=== PATIENT | female | born 1980 | race Caucasian/White ===

== ENCOUNTER 2016-11-30 13:39 | Inpatient (IN) | payer BC ==
[~2016-11-30 13:39] MED LIST: SUCCINYLCHOLINE CHLORIDE INJ 200 MG/10 ML VIAL ONE
[2016-11-30] MEDS ORDERED: ETOMIDATE INJ/PF 20 MG/10 ML SDV IV ONE ×2 (14:02→14:18)
--- NOTE | 2016-11-30 14:10 | ER Document Report ---
ED General - General Stated Complaint: POSSIBLE OVERDOSE Mode of Arrival: Medic Information source: Patient Notes: 28-year-old female presents as a drug overdose. Patient sent a picture of the empty pill bottles to her ex-boyfriend appears to have taken the medication one hour prior to arrival patient was moaning initially when EMS arrived but became unresponsive to painful stimuli TRAVEL OUTSIDE OF THE [place] IN LAST 30 DAYS: No - HPI Onset: Just prior to arrival Onset/Duration: Sudden Quality of pain: No pain Severity: Severe Pain Level: Denies Associated symptoms: Other Exacerbated by: Denies Relieved by: Denies Similar symptoms previously: No Recently seen / treated by doctor: No - Related Data Allergies/Adverse Reactions: cephalexin monohydrate [From Keflex] Allergy (Verified 07/29/15 19:26) codeine [Codeine] Allergy (Verified 07/29/15 19:26) Past Medical History - Social History Smoking Status: Unknown if Ever Smoked Cigarette use (# per day): No Chew tobacco use (# tins/day): No Smoking Education Provided: No Family History: Reviewed & Not Pertinent Past Surgical History: Reports: Hx Section - x 2, Hx Orthopedic Surgery - right knee arthroscopy, Hx Thyroid Surgery - cyst removal, Hx Tubal Ligation Review of Systems - Review of Systems Notes: PHYSICAL EXAMINATION: GENERAL: Well-appearing, well-nourished and painful stimuli obtunded HEAD: Atraumatic, normocephalic. EYES: Pupils equal round and reactive to light, extraocular movements intact, conjunctiva are normal. ENT: Nares patent, oropharynx clear without exudates. Moist mucous membranes. NECK: Normal range of motion, supple without lymphadenopathy LUNGS: Breath sounds clear to auscultation bilaterally and equal. No wheezes rales or rhonchi. Nasal cannula placed HEART: Regular rate and rhythm without murmurs ABDOMEN: Soft, nontender, nondistended abdomen. No guarding, no rebound. No masses appreciated. Female : deferred Musculoskeletal: Normal range of motion, no pitting or edema. No cyanosis. NEUROLOGICAL: No response to painful stimuli SKIN: Warm, Dry, normal turgor, no rashes or lesions noted. -: Yes ROS unobtainable due to patient's medical condition Physical Exam - Vital signs Vitals: Resp BP Pulse Ox 20 107/68 95 11/30/16 13:44 11/30/16 13:44 11/30/16 13:44 Course - Re-evaluation Re-evalutation: 11/30/16 14:02 Patient noted to have an empty bottle of doxepin 10 mg quantity 60 Patient noted to have bilateral of Klonopin 0.5 mg 60 tablets bottle filled on the with 51.5 tablets poison control paged 11/30/16 14:11 pt immediately intubated on arrival due to lack of pain stimuli if QRS widens to >140 poison control wants bicarb boluses 1-2 meq /kg iv push 4 hour post ingestion tylenol level - Vital Signs Vital signs: Temp Pulse Resp BP Pulse Ox 95.4 F L 22 H 123/97 H 99 11/30/16 14:21 11/30/16 14:21 11/30/16 14:21 11/30/16 14:21 - EKG Interpretation by Me EKG shows normal: Sinus rhythm, [place], Intervals, QRS Complexes Procedures - Intubation Orotracheal Time of Intubation: 14:00 Airway evaluation: Large tongue Mallampati Classification: Class 1 Medications: Etomidate, Succinylcholine Intubation method: Orotracheal Blade type: Opal Blade size: 4 ETT size: 7.0 ETT secured at: Teeth ETT secured at (cm): 22 Breath Sounds after Intubation: Equal End tidal CO2 confirmed: Yes Post Intubation Xray: Yes Intubation Complications: No complications Critical Care Note - Critical Care Note Total time excluding time spent on procedures (mins): 37 Comments: 37 minutes of critical care time spent in direct contact evaluating and reevaluating the patient, treating symptoms, reviewing labs and studies and speaking with family and consultants excluding any procedures Discharge - Discharge Clinical Impression: Tricyclic overdose Qualifiers: Encounter type: initial encounter Injury intent: intentional self-harm Qualified Code(s): T43.012A - Poisoning by tricyclic antidepressants, intentional self-harm, initial encounter Respiratory failure Qualifiers: Chronicity: acute Respiratory failure complication: hypoxia Qualified Code(s): J96.01 - Acute respiratory failure with hypoxia Condition: Serious Disposition: ADMITTED INPATIENT Admitting Provider: Hospitalist Unit Admitted: ICU
[2016-11-30] MEDS ORDERED: SUCCINYLCHOLINE CHLORIDE INJ 200 MG/10 ML VIAL IV ONE (14:18)
[2016-11-30] MEDS ORDERED: NORMAL SALINE 1000 ML 1,000 ML IV PRN (14:27)
[2016-11-30] MEDS: NORMAL SALINE 1000 ML 1,000 ML IV PRN ×2 (14:32→14:34)
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
[2016-11-30 15:05] LABS: ABSOLUTE EOSINOPHILS # (AUTO) 0.1 10^3/uL (0.0-0.6); ABSOLUTE LYMPHOCYTES (AUTO) 1.1 10^3/uL (0.5-4.7); ABSOLUTE MONOCYTES (AUTO) 0.2 10^3/uL (0.1-1.4); ABSOLUTE NEUT (AUTO) 2.9 10^3/uL (1.7-8.2); BASOPHILS % (AUTO) 0.4 % (0-2); HEMATOCRIT 35.1 % (36.0-47.0); HEMOGLOBIN 11.8 g/dL (12.0-15.5); HGB HCT DIFFERENCE 0.3; LYMPHOCYTES % (AUTO) 25.2 % (13-45); MEAN CORPUSCULAR HEMOGLOBIN 30.3 pg (27.0-33.4); MEAN CORPUSCULAR HGB CONC 33.6 g/dL (32.0-36.0); MEAN CORPUSCULAR VOLUME 90 fl (80-97); MONOCYTES % (AUTO) 4.7 % (3-13); RED CELL DISTRIBUTION WIDTH 13.5 % (11.5-14.0); SEGMENTED NEUTROPHILS % (AUTO) 67.7 % (42-78); WHITE BLOOD COUNT 4.2 10^3/uL (4.0-10.5)
[2016-11-30 15:08] LABS: APPEARANCE,URINE CLEAR; BILIRUBIN,URINE NEGATIVE (NEGATIVE); GLUCOSE, URINE NEGATIVE (NEGATIVE); KETONES,URINE NEGATIVE (NEGATIVE); LEUKOCYTE ESTERASE,URINE NEGATIVE (NEGATIVE); NITRITE,URINE NEGATIVE (NEGATIVE); PROTEIN,URINE NEGATIVE (NEGATIVE); URINE SPECIFIC GRAVITY 1.003; UROBILINOGEN,URINE NEGATIVE mg/dL (<2.0)
[2016-11-30 15:23] LABS: ALANINE AMINOTRANSFERASE 22 U/L (9-52); ALBUMIN 3.1 g/dL (3.5-5.0); ALCOHOL < 10 mg/dL (NONE DETECTED); ALKALINE PHOSPHATASE 46 U/L (38-126); ANION GAP 6 (5-19); ASPARTATE AMINO TRANSFERASE 15 U/L (14-36); BILIRUBIN,TOTAL 0.7 mg/dL (0.2-1.3); BLOOD UREA NITROGEN 9 mg/dL (7-20); CALCIUM 7.7 mg/dL (8.4-10.2); CARBON DIOXIDE 20 mmol/L (22-30); CHLORIDE 115 mmol/L (98-107); CREATININE RESULT 0.73 mg/dL (0.52-1.25); GLUCOSE 95 mg/dL (75-110); POTASSIUM 3.9 mmol/L (3.6-5.0); SODIUM 141.3 mmol/L (137-145); TOTAL PROTEIN 5.2 g/dL (6.3-8.2)
[2016-11-30 15:27] LABS: URINE BARBITURATES SCREEN NEGATIVE; URINE METHADONE SCREEN NEGATIVE; URINE OPIATES LOW NEGATIVE; URINE PHENCYCLIDINE SCREEN NEGATIVE
--- NOTE | 2016-11-30 15:30 | EKG REPORT ---
SEVERITY:- ABNORMAL ECG - SINUS RHYTHM FIRST DEGREE AV BLOCK OLD ANTEROSEPTAL CT. : Confirmed by: Stef Issa MD 30-Nov-2016 15:29:38
--- NOTE | 2016-11-30 16:16 | PDOC H&P ---
History of Present Illness Admission Date/PCP: 11/30/16 14:56 Patient complains of: intentional drug overdose History of Present Illness: JANAE DUBOIS is a 36 year old female who presents to the [facility] ED as a drug overdose. The patient's and picture of the empty pill bottles to her ex-boyfriend. She apparently took the medications about one hour prior to arrival in the ED. The patient was initially moaning but then became unresponsive. She was intubated and is now on a mechanical ventilator. The patient is noted to have an empty bottle of doxepin 10 mg quantity 60 which was filled on 11/24/2016. She also had a bottle of Klonopin 0.5 mg 60 tablets also filled on the but still containing 51.5 tablets. The electrocardiogram shows that her QRS is not widened. If the QRS widens greater than 140, carbonate therapy is to be instituted. The patient will be admitted to the ICU for support and monitoring. Past Medical History Past Medical History: Past medical history is unknown and unobtainable from the patient who is encephalopathic on a ventilator. Past Surgical History Past Surgical History: right knee arthroscopy, thyroid surgery, cyst removal, tubal ligation, C- section x2 Past Surgical History: Reports: Other Social History Smoking Status: Unknown if Ever Smoked Drugs: Other - Unobtainable from the patient was obtunded and on a ventilator. Family History Family History: Other - Unobtainable from the patient who is obtunded and on a ventilator. Parental Family History Reviewed: No Children Family History Reviewed: No Sibling(s) Family History Reviewed.: No Medication/Allergy Home Medications: No Home Medications 07/29/15 Allergies/Adverse Reactions: cephalexin monohydrate [From Keflex] Allergy (Verified 07/29/15 19:26) codeine [Codeine] Allergy (Verified 07/29/15 19:26) Review of Systems ROS unobtainable: Due to mental status - Unobtainable from the patient was obtunded and on a ventilator., Other - Unobtainable from the patient was obtunded and on a ventilator. Physical Exam Vital Signs: Temp Pulse Resp BP Pulse Ox 94.3 F L 12 120/83 99 11/30/16 15:51 11/30/16 15:51 11/30/16 15:51 11/30/16 15:51 General appearance: PRESENT: well-developed, well-nourished, other - Obtunded. Oral endotracheally intubated and on a ventilator. Head exam: PRESENT: atraumatic, normocephalic Eye exam: PRESENT: conjunctiva pink. ABSENT: scleral icterus Ear exam: PRESENT: normal external ear exam Mouth exam: PRESENT: moist, tongue midline Neck exam: ABSENT: carotid bruit, JVD, lymphadenopathy, thyromegaly Respiratory exam: PRESENT: clear to auscultation gaudencio. ABSENT: rales, rhonchi, wheezes Cardiovascular exam: PRESENT: RRR. ABSENT: diastolic murmur, rubs, systolic murmur Pulses: PRESENT: normal dorsalis pedis pul Vascular exam: PRESENT: normal capillary refill GI/Abdominal exam: PRESENT: normal bowel sounds, soft. ABSENT: distended, guarding, mass, organolmegaly, rebound, tenderness Rectal exam: PRESENT: deferred Extremities exam: ABSENT: calf tenderness, clubbing, pedal edema Neurological exam: PRESENT: altered, motor sensory deficit. ABSENT: alert, awake Psychiatric exam: PRESENT: suicidal ideation Skin exam: PRESENT: dry, intact, warm. ABSENT: cyanosis, rash Results Impressions: Chest X-Ray 11/30/16 14:13 IMPRESSION: Atelectasis or early pneumonia status post intubation. Good position of support apparatus. Assessment & Plan - Diagnosis (1) Tricyclic overdose Qualifiers: Encounter type: initial encounter Injury intent: intentional self-harm Qualified Code(s): T43.012A - Poisoning by tricyclic antidepressants, intentional self-harm, initial encounter Plan: The patient is intubated and on a ventilator. Due to being obtunded. Due to tricyclic antidepressant overdose. The QRS complex is not widened. This will be monitored. If the QRS widens greater than 140 ms Will treat with bicarbonate. (2) Respiratory failure Qualifiers: Chronicity: acute Respiratory failure complication: hypoxia Qualified Code(s): J96.01 - Acute respiratory failure with hypoxia Plan: Ventilator support while she remains obtunded. We'll consult pulmonary medicine for ventilator management. (3) Major depression Plan: Psychiatry consultation is in place - Time Critical Time spent with patient: 35 or more minutes
[2016-11-30] MEDS ORDERED: ENOXAPARIN SODIUM INJ 40 MG/0.4 ML DISP.SYRIN SUBCUT ONE (17:00)
[2016-11-30] MEDS: FAMOTIDINE INJ/PF 20 MG/2 ML SDV IV SCH (18:00)
[2016-11-30] MEDS: DEXTROSE 5%-1/2 NORMAL SALINE 1,000 ML IV PRN ×2 (18:00→23:37)
[2016-11-30] MEDS ORDERED: MIDAZOLAM 2 MG/2 ML INJ ONE (19:43)
[2016-11-30] MEDS ORDERED: MIDAZOLAM HCL 100 ML IV ONE (19:48)
[2016-11-30] MEDS: MIDAZOLAM HCL 100 ML IV PRN (20:22)
[2016-12-01] MEDS ORDERED: MIDAZOLAM 2 MG/2 ML INJ ONE ×3 (01:28→01:31)
[2016-12-01] MEDS: MIDAZOLAM HCL 100 ML IV PRN ×4 (03:39→21:57)
[2016-12-01] MEDS: FAMOTIDINE INJ/PF 20 MG/2 ML SDV IV SCH ×2 (05:46→17:25)
[2016-12-01] MEDS: ENOXAPARIN SODIUM INJ 40 MG/0.4 ML DISP.SYRIN SUBCUT SCH (08:06)
[2016-12-01] MEDS: DEXTROSE 5%-1/2 NORMAL SALINE 1,000 ML IV PRN ×3 (08:06→23:45)
[2016-12-01] MEDS ORDERED: DEXTROSE 40% GEL 15 GM TUBE PO PRN ×2 (08:32)
[2016-12-01] MEDS ORDERED: INSULIN LISPRO 100 UNIT/ML 3 ML VIAL SUBCUT PRN (08:32)
[2016-12-01] MEDS ORDERED: GLUCAGON,HUMAN RECOMB 1 MG INJ IM PRN (08:32)
[2016-12-01] MEDS ORDERED: DEXTROSE 50%-WATER 25 GM/50 ML DISP.SYRIN IV PRN ×2 (08:32)
[2016-12-01] MEDS ORDERED: PROPOFOL 100 ML IV PRN (08:34)
[2016-12-01] MEDS ORDERED: ALBUTEROL SULFATE 0.083% NEB 2.5 MG/3 ML AMPUL NEB PRN (08:35)
[2016-12-01] MEDS ORDERED: PHARMACY COMMUNICATION ORDER MC NR (08:45)
[2016-12-01 09:32] LABS: ARTERIAL BLOOD BASE EXCESS -3.3 mmol/L; ARTERIAL BLOOD O2 SATURATION 98.9 % (94-98)
[2016-12-01] MEDS ORDERED: SODIUM BICARBONATE 8.4% INJ 50 MEQ/50 ML DISP.SYRIN IV ONE ×2 (09:33→11:12)
[2016-12-01 09:48] LABS: ABSOLUTE EOSINOPHILS # (AUTO) 0.1 10^3/uL (0.0-0.6); ABSOLUTE LYMPHOCYTES (AUTO) 0.8 10^3/uL (0.5-4.7); ABSOLUTE MONOCYTES (AUTO) 0.4 10^3/uL (0.1-1.4); ABSOLUTE NEUT (AUTO) 7.9 10^3/uL (1.7-8.2); BASOPHILS % (AUTO) 0.2 % (0-2); EOSINOPHILS % (AUTO) 0.7 % (0-6); HEMOGLOBIN 12.1 g/dL (12.0-15.5); HGB HCT DIFFERENCE 0.3; LYMPHOCYTES % (AUTO) 8.6 % (13-45); MEAN CORPUSCULAR HGB CONC 33.7 g/dL (32.0-36.0); MEAN CORPUSCULAR VOLUME 89 fl (80-97); MONOCYTES % (AUTO) 4.3 % (3-13); RED BLOOD COUNT 4.04 10^6/uL (3.72-5.28); RED CELL DISTRIBUTION WIDTH 13.4 % (11.5-14.0); SEGMENTED NEUTROPHILS % (AUTO) 86.2 % (42-78)
[2016-12-01 09:58] LABS: WHITE BLOOD COUNT 9.2 10^3/uL (4.0-10.5)
[2016-12-01] MEDS ORDERED: MORPHINE SULFATE 10 MG/ML INJ IV PRN (09:59)
[2016-12-01 10:09] LABS: ALANINE AMINOTRANSFERASE 21 U/L (9-52); ALBUMIN 3.2 g/dL (3.5-5.0); ALKALINE PHOSPHATASE 47 U/L (38-126); ANION GAP 9 (5-19); ASPARTATE AMINO TRANSFERASE 15 U/L (14-36); BLOOD UREA NITROGEN 5 mg/dL (7-20); CALCIUM 8.3 mg/dL (8.4-10.2); CARBON DIOXIDE 19 mmol/L (22-30); CHLORIDE 112 mmol/L (98-107); CREATINE KINASE 56 U/L (30-135); CREATININE RESULT 0.68 mg/dL (0.52-1.25); GLUCOSE 122 mg/dL (75-110); MAGNESIUM 1.9 mg/dL (1.6-2.3); PHOSPHORUS 2.6 mg/dL (2.5-4.5); POTASSIUM 3.5 mmol/L (3.6-5.0); SODIUM 140.2 mmol/L (137-145); TOTAL PROTEIN 5.4 g/dL (6.3-8.2)
[2016-12-01 10:11] LABS: LITHIUM < 0.2 mEq/L (0.6-1.2)
--- NOTE | 2016-12-01 10:34 | PDOC PROGRESS REPORT ---
Subjective Progress Note for:: 12/01/16 Subjective:: Patient remains intubated and sedated. Unable to obtain review of systems. Physical Exam Vital Signs: Temp Pulse Resp BP Pulse Ox 98.4 F 78 17 113/73 100 12/01/16 08:00 12/01/16 08:00 12/01/16 08:00 12/01/16 08:00 12/01/16 08:20 Intake & Output 11/30/16 12/01/16 12/02/16 06:59 06:59 06:59 Output Total 1999 Balance -1999 Exam: General: Intubated and sedated, ET tube in place HEENT: AT/NC, PERRL, oropharynx is moist, pink, no scleral icterus, no conjunctival injection Neck: No JVD, trachea midline Chest: Clear to auscultation bilaterally, no wheezes rhonchi or rales CV: Regular rate and rhythm, normal S1 and S2, no murmur, rub, or gallop Abdomen: Soft, nontender to palpation, nondistended, active bowel sounds; no rebound, rigidity, or guarding Extremities: No cyanosis, clubbing or edema Results Laboratory Results: 12/01/16 09:40 12/01/16 09:40 12/01/16 12/01/16 12/01/16 09:20 09:40 09:40 WBC 9.2 D RBC 4.04 Hgb 12.1 Hct 36.0 MCV 89 MCH 30.0 MCHC 33.7 RDW 13.4 Plt Count 154 Seg Neutrophils % 86.2 H Lymphocytes % 8.6 L Monocytes % 4.3 Eosinophils % 0.7 Basophils % 0.2 Absolute Neutrophils 7.9 Absolute Lymphocytes 0.8 Absolute Monocytes 0.4 Absolute Eosinophils 0.1 Absolute Basophils 0.0 Carbonic Acid 1.06 HCO3/H2CO3 Ratio 19:1 ABG pH 7.39 ABG pCO2 35.2 ABG pO2 147.7 H ABG HCO3 21.0 ABG O2 Saturation 98.9 H ABG Base Excess -3.3 FiO2 35% Sodium 140.2 Potassium 3.5 L Chloride 112 H Carbon Dioxide 19 L Anion Gap 9 BUN 5 L Creatinine 0.68 Est GFR ( Amer) > 60 Est GFR (Non-Af Amer) > 60 Glucose 122 H Calcium 8.3 L Phosphorus 2.6 Magnesium 1.9 Total Bilirubin 1.0 AST 15 ALT 21 Alkaline Phosphatase 47 Total Protein 5.4 L Albumin 3.2 L 12/01/16 09:40 Creatine Kinase 56 Impressions: Chest X-Ray 12/01/16 00:00 IMPRESSION: Endotracheal and nasogastric tubes in good positioning. Bandlike atelectasis left lung base. Assessment & Plan - Diagnosis (1) Respiratory failure Qualifiers: Chronicity: acute Respiratory failure complication: hypoxia Qualified Code(s): J96.01 - Acute respiratory failure with hypoxia Is this a current diagnosis for this admission?: YesPlan: Patient appears to have been intubated for decreased level of consciousness and some slight hypoxia. Patient currently doing well from a ventilator standpoint. Have consulted Dr. vinson of pulmonary medicine. (2) Tricyclic overdose Qualifiers: Encounter type: initial encounter Injury intent: intentional self-harm Qualified Code(s): T43.012A - Poisoning by tricyclic antidepressants, intentional self-harm, initial encounter Is this a current diagnosis for this admission?: YesPlan: Patient with first-degree AV block. Will give patient 100 mEq of sodium bicarbonate and repeat her EKG. Patient has a mildly prolonged QRS 0.9. Concern for cardiac toxicity in light of tricyclic overdose. Continue to monitor. EKGs every 4 hours. BMPs every 4 hours. Continue Versed for sedation and use propofol if needed. Monitor for seizure activity. IVC for patient safety. Plan for inpatient psychiatry. (3) Obesity (BMI 30.0-34.9) Is this a current diagnosis for this admission?: Yes - Time Critical Time spent with patient: 35 or more minutes Medications reviewed and adjusted accordingly: Yes Anticipated discharge: Other
[2016-12-01] MEDS ORDERED: NORMAL SALINE 1000 ML 1,000 ML IV ONE (11:10)
[2016-12-01] MEDS: DEXTROSE 5%-WATER 1000 ML 1,000 ML with SODIUM BICARBONATE 150 ML IV PRN ×6 (11:54→21:57)
[2016-12-01 11:59] LABS: URINE BARBITURATES SCREEN NEGATIVE; URINE METHADONE SCREEN NEGATIVE; URINE OPIATES LOW NEGATIVE; URINE PHENCYCLIDINE SCREEN NEGATIVE
[2016-12-01 12:59] LABS: ANION GAP 8 (5-19); BLOOD UREA NITROGEN 5 mg/dL (7-20); CALCIUM 7.8 mg/dL (8.4-10.2); CARBON DIOXIDE 25 mmol/L (22-30); CHLORIDE 112 mmol/L (98-107); CREATININE RESULT 0.65 mg/dL (0.52-1.25); GLUCOSE 129 mg/dL (75-110); POTASSIUM 3.1 mmol/L (3.6-5.0)
[2016-12-01] MEDS ORDERED: POTASSIUM CHLORIDE 20 MEQ/15 ML UDCUP NG ONE ×2 (14:00→18:00)
[2016-12-01] MEDS: MAGNESIUM SULFATE/D5W 1 GM/100 ML RTUPB IV SCH ×2 (14:04→15:35)
[2016-12-01] MEDS: POTASSI CL 20 MEQ/50 ML RIDER 20 MEQ/50 ML RTUPB IV SCH ×4 (14:05→20:57)
--- NOTE | 2016-12-01 14:08 | PDOC CONSULTATION ---
Consultation Consult Date: 12/01/16 Attending physician:: NADINE GOMEZ Consult reason:: Altered mental status History of Present Illness Admission Date/PCP: 11/30/16 15:38 History of Present Illness: All information from chart as patient is currently intubated and sedated no family members at bedside JANAE DUBOIS is a 36 year old female who presents to the [facility] ED as a drug overdose. The patient's and picture of the empty pill bottles to her ex-boyfriend. She apparently took the medications about one hour prior to arrival in the ED. The patient was initially moaning but then became unresponsive. She was intubated and is now on a mechanical ventilator.The patient is noted to have an empty bottle of doxepin 10 mg quantity 60 which was filled on 11/24/2016. She also had a bottle of Klonopin 0.5 mg 60 tablets also filled on the but still containing 51.5 tablets. The electrocardiogram shows that her QRS is not widened. If the QRS widens greater than 140, carbonate therapy is to be instituted. Past Surgical History Past Surgical History: Reports: Section - x 2, Orthopedic Surgery - right knee arthroscopy, Tubal Ligation, Other Social History Information Source: [facility] Records Smoking Status: Unknown if Ever Smoked Drugs: Other - Unobtainable from the patient was obtunded and on a ventilator. Family History Family History: Other - Unobtainable from the patient who is obtunded and on a ventilator. Parental Family History Reviewed: No Children Family History Reviewed: No Sibling(s) Family History Reviewed.: No Medication/Allergy Home Medications: Unobtainable [Unobtainable] 11/30/16 Allergies/Adverse Reactions: cephalexin monohydrate [From Keflex] Allergy (Verified 07/29/15 19:26) codeine [Codeine] Allergy (Verified 07/29/15 19:26) Review of Systems ROS unobtainable: Due to endotracheal tube Physical Exam Vital Signs: Temp Pulse Resp BP Pulse Ox 98.4 F 78 17 113/73 100 12/01/16 08:00 12/01/16 08:00 12/01/16 08:00 12/01/16 08:00 12/01/16 08:20 Intake & Output 11/30/16 12/01/16 12/02/16 06:59 06:59 06:59 Output Total 2000 Balance -2000 General appearance: PRESENT: no acute distress, disheveled, well-developed, well -nourished Head exam: PRESENT: atraumatic, normocephalic Eye exam: PRESENT: conjunctiva pale Mouth exam: PRESENT: moist, neck supple, tongue midline, other - Endotracheal tube in place Neck exam: ABSENT: carotid bruit, JVD, lymphadenopathy, thyromegaly Respiratory exam: PRESENT: decreased breath sounds, rhonchi, symmetrical, unlabored Cardiovascular exam: PRESENT: RRR, +S1, +S2 Pulses: PRESENT: normal radial pulses GI/Abdominal exam: PRESENT: normal bowel sounds, soft. ABSENT: distended, guarding, mass, organolmegaly, rebound, tenderness Rectal exam: PRESENT: deferred Musculoskeletal exam: PRESENT: normal inspection Skin exam: PRESENT: dry, intact, warm Results Impressions: Chest X-Ray 11/30/16 14:13 IMPRESSION: Atelectasis or early pneumonia status post intubation. Good position of support apparatus. Assessment & Plan - Diagnosis (1) Major depression Is this a current diagnosis for this admission?: Yes (2) Respiratory failure Qualifiers: Chronicity: acute Respiratory failure complication: hypoxia Qualified Code(s): J96.01 - Acute respiratory failure with hypoxia Is this a current diagnosis for this admission?: YesPlan: Obtunded unable to protect airway ABGs acceptable at this time (3) Tricyclic overdose Qualifiers: Encounter type: initial encounter Injury intent: intentional self-harm Qualified Code(s): T43.012A - Poisoning by tricyclic antidepressants, intentional self-harm, initial encounter Is this a current diagnosis for this admission?: YesPlan: No EKG abnormalities noted remains obtunded - Time Critical Time spent with patient: 35 or more minutes - 50 minutes
[2016-12-01] MEDS: MORPHINE SULFATE 10 MG/ML INJ SUBCUT SCH ×2 (14:51→17:25)
[2016-12-01] MEDS: CLINDAMYCIN 600 MG/D5W RTU 50 ML IV SCH ×2 (14:58→21:00)
[2016-12-01 15:23] LABS: ARTERIAL BLOOD BASE EXCESS -0.3 mmol/L; ARTERIAL BLOOD O2 SATURATION 98.9 % (94-98)
[2016-12-01 16:20] LABS: ANION GAP 7 (5-19); BLOOD UREA NITROGEN 4 mg/dL (7-20); CALCIUM 7.8 mg/dL (8.4-10.2); CARBON DIOXIDE 25 mmol/L (22-30); CHLORIDE 110 mmol/L (98-107); CREATININE RESULT 0.61 mg/dL (0.52-1.25); GLUCOSE 151 mg/dL (75-110); POTASSIUM 3.5 mmol/L (3.6-5.0); SODIUM 141.7 mmol/L (137-145)
[2016-12-01 16:48] LABS: ARTERIAL BLOOD BASE EXCESS 0.2 mmol/L; ARTERIAL BLOOD O2 SATURATION 98.9 % (94-98)
--- NOTE | 2016-12-01 18:23 | EKG REPORT ---
SEVERITY:- ABNORMAL ECG - SINUS RHYTHM FIRST DEGREE AV BLOCK BORDERLINE T ABNORMALITIES, ANT-LAT LEADS OLD ANTEROSEPTAL [place] : Confirmed by: Stef Issa MD 01-Dec-2016 18:22:21
--- NOTE | 2016-12-01 18:24 | EKG REPORT ---
SEVERITY:- ABNORMAL ECG - SINUS RHYTHM FIRST DEGREE AV BLOCK BORDERLINE T ABNORMALITIES, ANT-LAT LEADS OLD ANTEROSEPTAL [place] : Confirmed by: Stef Issa MD 01-Dec-2016 18:23:20
--- NOTE | 2016-12-01 18:24 | EKG REPORT ---
SEVERITY:- ABNORMAL ECG - SINUS RHYTHM FIRST DEGREE AV BLOCK BORDERLINE T ABNORMALITIES, ANT-LAT LEADS OLD ANTEROSEPTAL SD : Confirmed by: Stef Issa MD 01-Dec-2016 18:23:00
[2016-12-01 18:30] LABS: ARTERIAL BLOOD BASE EXCESS -1.5 mmol/L; ARTERIAL BLOOD O2 SATURATION 98.9 % (94-98)
[2016-12-01 19:51] LABS: ARTERIAL BLOOD BASE EXCESS -0.4 mmol/L; ARTERIAL BLOOD O2 SATURATION 98.7 % (94-98)
[2016-12-01 20:08] LABS: ANION GAP 6 (5-19); BLOOD UREA NITROGEN 3 mg/dL (7-20); CALCIUM 7.9 mg/dL (8.4-10.2); CARBON DIOXIDE 24 mmol/L (22-30); CHLORIDE 112 mmol/L (98-107); CREATININE RESULT 0.61 mg/dL (0.52-1.25); GLUCOSE 132 mg/dL (75-110); SODIUM 142.4 mmol/L (137-145)
[2016-12-01 20:58] LABS: ARTERIAL BLOOD O2 SATURATION 93.8 % (94-98)
[2016-12-01 22:42] LABS: ARTERIAL BLOOD BASE EXCESS -0.9 mmol/L; ARTERIAL BLOOD O2 SATURATION 95.9 % (94-98)
[2016-12-02 00:06] LABS: ANION GAP 7 (5-19); BLOOD UREA NITROGEN 3 mg/dL (7-20); CALCIUM 7.9 mg/dL (8.4-10.2); CARBON DIOXIDE 25 mmol/L (22-30); CHLORIDE 110 mmol/L (98-107); CREATININE RESULT 0.66 mg/dL (0.52-1.25); GLUCOSE 130 mg/dL (75-110); POTASSIUM 3.9 mmol/L (3.6-5.0); SODIUM 141.5 mmol/L (137-145)
[2016-12-02] MEDS: MORPHINE SULFATE 10 MG/ML INJ SUBCUT SCH ×2 (00:31→05:46)
[2016-12-02] MEDS: MIDAZOLAM HCL 100 ML IV PRN ×2 (01:48→06:30)
[2016-12-02 02:10] LABS: ABSOLUTE EOSINOPHILS # (AUTO) 0.1 10^3/uL (0.0-0.6); ABSOLUTE LYMPHOCYTES (AUTO) 0.9 10^3/uL (0.5-4.7); ABSOLUTE MONOCYTES (AUTO) 0.3 10^3/uL (0.1-1.4); ABSOLUTE NEUT (AUTO) 5.1 10^3/uL (1.7-8.2); BASOPHILS % (AUTO) 0.4 % (0-2); EOSINOPHILS % (AUTO) 1.6 % (0-6); HEMATOCRIT 32.6 % (36.0-47.0); HEMOGLOBIN 11.3 g/dL (12.0-15.5); HGB HCT DIFFERENCE 1.3; LYMPHOCYTES % (AUTO) 14.3 % (13-45); MEAN CORPUSCULAR HEMOGLOBIN 30.7 pg (27.0-33.4); MEAN CORPUSCULAR HGB CONC 34.6 g/dL (32.0-36.0); MEAN CORPUSCULAR VOLUME 89 fl (80-97); RED BLOOD COUNT 3.67 10^6/uL (3.72-5.28); RED CELL DISTRIBUTION WIDTH 13.3 % (11.5-14.0); SEGMENTED NEUTROPHILS % (AUTO) 78.7 % (42-78); WHITE BLOOD COUNT 6.5 10^3/uL (4.0-10.5)
[2016-12-02 02:48] LABS: ALANINE AMINOTRANSFERASE 18 U/L (9-52); ALBUMIN 2.6 g/dL (3.5-5.0); ALKALINE PHOSPHATASE 37 U/L (38-126); ANION GAP 7 (5-19); ASPARTATE AMINO TRANSFERASE 14 U/L (14-36); BILIRUBIN,TOTAL 0.7 mg/dL (0.2-1.3); BLOOD UREA NITROGEN 2 mg/dL (7-20); CALCIUM 7.6 mg/dL (8.4-10.2); CARBON DIOXIDE 25 mmol/L (22-30); CHLORIDE 110 mmol/L (98-107); CREATININE RESULT 0.67 mg/dL (0.52-1.25); GLUCOSE 132 mg/dL (75-110); MAGNESIUM 2.4 mg/dL (1.6-2.3); POTASSIUM 3.7 mmol/L (3.6-5.0); SODIUM 142.2 mmol/L (137-145); TOTAL PROTEIN 4.6 g/dL (6.3-8.2); TRIGLYCERIDES 73 mg/dL (<150)
[2016-12-02 05:36] LABS: ARTERIAL BLOOD BASE EXCESS 0.1 mmol/L; ARTERIAL BLOOD O2 SATURATION 97.6 % (94-98)
[2016-12-02] MEDS: CLINDAMYCIN 600 MG/D5W RTU 50 ML IV SCH ×3 (05:45→22:08)
[2016-12-02] MEDS: FAMOTIDINE INJ/PF 20 MG/2 ML SDV IV SCH ×2 (05:46→18:34)
[2016-12-02] MEDS: DEXTROSE 5%-WATER 1000 ML 1,000 ML with SODIUM BICARBONATE 150 ML IV PRN ×2 (05:47)
[2016-12-02] MEDS ORDERED: DEXTROSE 5%-WATER 1000 ML 1,000 ML with SODIUM BICARBONATE 150 ML IV PRN ×2 (07:44)
[2016-12-02] MEDS ORDERED: DEXTROSE 5%-WATER 1000 ML 1,000 ML with SODIUM BICARBONATE 150 MEQ IV PRN ×4 (07:58→15:16)
[2016-12-02] MEDS: ENOXAPARIN SODIUM INJ 40 MG/0.4 ML DISP.SYRIN SUBCUT SCH (08:19)
--- NOTE | 2016-12-02 08:26 | EKG REPORT ---
SEVERITY:- ABNORMAL ECG - SINUS RHYTHM FIRST DEGREE AV BLOCK ABNORMAL Q SUGGESTS ANTERIOR INFARCT BORDERLINE T ABNORMALITIES, ANT-LAT LEADS : Confirmed by: Stef Issa MD 02-Dec-2016 08:25:50
--- NOTE | 2016-12-02 08:58 | PDOC PROGRESS REPORT ---
Subjective Progress Note for:: 12/02/16 Subjective:: Patient remains intubated and sedated. Unable to obtain review of systems. No acute events overnight. Patient currently on sedation vacation moving all extremities. Not yet following commands. Physical Exam Vital Signs: Temp Pulse Resp BP Pulse Ox 98.8 F 77 15 106/63 99 12/01/16 18:00 12/01/16 20:27 12/02/16 07:00 12/02/16 06:41 12/02/16 04:10 Intake & Output 12/01/16 12/02/16 12/03/16 06:59 06:59 06:59 Intake Total 8664 Output Total 7060 Balance 1604 Weight 87.5 kg Exam: General: Intubated, moves all extremities, not following commands HEENT: AT/NC, PERRL, oropharynx is moist, pink, no scleral icterus, no conjunctival injection Neck: No JVD, trachea midline Chest: Diminished bilateral bases, otherwise clear to auscultation bilaterally without wheezes rhonchi or rales CV: Regular rate and rhythm, normal S1 and S2, no murmur, rub, or gallop Abdomen: Soft, nontender to palpation, nondistended, active bowel sounds; no rebound, rigidity, or guarding Extremities: No cyanosis, clubbing; 2+edema Neuro: Moves all extremities Results Laboratory Results: 12/02/16 02:00 12/02/16 02:23 12/01/16 12/01/16 12/01/16 09:20 09:40 09:40 WBC 9.2 D RBC 4.04 Hgb 12.1 Hct 36.0 MCV 89 MCH 30.0 MCHC 33.7 RDW 13.4 Plt Count 154 Seg Neutrophils % 86.2 H Lymphocytes % 8.6 L Monocytes % 4.3 Eosinophils % 0.7 Basophils % 0.2 Absolute Neutrophils 7.9 Absolute Lymphocytes 0.8 Absolute Monocytes 0.4 Absolute Eosinophils 0.1 Absolute Basophils 0.0 Carbonic Acid 1.06 HCO3/H2CO3 Ratio 19:1 ABG pH 7.39 ABG pCO2 35.2 ABG pO2 147.7 H ABG HCO3 21.0 ABG O2 Saturation 98.9 H ABG Base Excess -3.3 FiO2 35% Sodium 140.2 Potassium 3.5 L Chloride 112 H Carbon Dioxide 19 L Anion Gap 9 BUN 5 L Creatinine 0.68 Est GFR ( Amer) > 60 Est GFR (Non-Af Amer) > 60 Glucose 122 H Calcium 8.3 L Phosphorus 2.6 Magnesium 1.9 Total Bilirubin 1.0 AST 15 ALT 21 Alkaline Phosphatase 47 Total Protein 5.4 L Albumin 3.2 L Triglycerides 12/01/16 12/01/16 12/01/16 12:25 15:10 15:50 WBC RBC Hgb Hct MCV MCH MCHC RDW Plt Count Seg Neutrophils % Lymphocytes % Monocytes % Eosinophils % Basophils % Absolute Neutrophils Absolute Lymphocytes Absolute Monocytes Absolute Eosinophils Absolute Basophils Carbonic Acid 1.01 L HCO3/H2CO3 Ratio 22:1 ABG pH 7.46 H ABG pCO2 33.4 L ABG pO2 141.5 H ABG HCO3 23.1 ABG O2 Saturation 98.9 H ABG Base Excess -0.3 FiO2 35% Sodium 145.0 141.7 Potassium 3.1 L 3.5 L Chloride 112 H 110 H Carbon Dioxide 25 25 Anion Gap 8 7 BUN 5 L 4 L Creatinine 0.65 0.61 Est GFR ( Amer) > 60 > 60 Est GFR (Non-Af Amer) > 60 > 60 Glucose 129 H 151 H Calcium 7.8 L 7.8 L Phosphorus Magnesium Total Bilirubin AST ALT Alkaline Phosphatase Total Protein Albumin Triglycerides 12/01/16 12/01/16 12/01/16 16:28 18:05 19:35 WBC RBC Hgb Hct MCV MCH MCHC RDW Plt Count Seg Neutrophils % Lymphocytes % Monocytes % Eosinophils % Basophils % Absolute Neutrophils Absolute Lymphocytes Absolute Monocytes Absolute Eosinophils Absolute Basophils Carbonic Acid 1.05 0.94 L 0.97 L HCO3/H2CO3 Ratio 22:1 22:1 23:1 ABG pH 7.45 7.46 H 7.47 H ABG pCO2 35.0 31.1 L 32.1 L ABG pO2 138.0 H 139.7 H 124.0 H ABG HCO3 23.8 21.5 22.7 ABG O2 Saturation 98.9 H 98.9 H 98.7 H ABG Base Excess 0.2 -1.5 -0.4 FiO2 35% 35% 30% Sodium Potassium Chloride Carbon Dioxide Anion Gap BUN Creatinine Est GFR ( Amer) Est GFR (Non-Af Amer) Glucose Calcium Phosphorus Magnesium Total Bilirubin AST ALT Alkaline Phosphatase Total Protein Albumin Triglycerides 12/01/16 12/01/1612/01/17 19:50 20:45 21:45 WBC RBC Hgb Hct MCV MCH MCHC RDW Plt Count Seg Neutrophils % Lymphocytes % Monocytes % Eosinophils % Basophils % Absolute Neutrophils Absolute Lymphocytes Absolute Monocytes Absolute Eosinophils Absolute Basophils Carbonic Acid 1.19 0.99 L HCO3/H2CO3 Ratio 21:1 22:1 ABG pH 7.43 7.45 ABG pCO2 39.4 32.8 L ABG pO2 66.9 L 75.8 L ABG HCO3 25.4 22.4 ABG O2 Saturation 93.8 L 95.9 ABG Base Excess 1.0 -0.9 FiO2 30% 30% Sodium 142.4 Potassium 4.0 Chloride 112 H Carbon Dioxide 24 Anion Gap 6 BUN 3 L Creatinine 0.61 Est GFR ( Amer) > 60 Est GFR (Non-Af Amer) > 60 Glucose 132 H Calcium 7.9 L Phosphorus Magnesium Total Bilirubin AST ALT Alkaline Phosphatase Total Protein Albumin Triglycerides 12/01/16 12/01/16 12/02/16 22:49 23:39 02:00 WBC 6.5 RBC 3.67 L Hgb 11.3 L Hct 32.6 L MCV 89 MCH 30.7 MCHC 34.6 RDW 13.3 Plt Count 128 L Seg Neutrophils % 78.7 H Lymphocytes % 14.3 Monocytes % 5.0 Eosinophils % 1.6 Basophils % 0.4 Absolute Neutrophils 5.1 Absolute Lymphocytes 0.9 Absolute Monocytes 0.3 Absolute Eosinophils 0.1 Absolute Basophils 0.0 Carbonic Acid HCO3/H2CO3 Ratio ABG pH ABG pCO2 ABG pO2 ABG HCO3 ABG O2 Saturation ABG Base Excess FiO2 Sodium Cancelled 141.5 Potassium Cancelled 3.9 Chloride Cancelled 110 H Carbon Dioxide Cancelled 25 Anion Gap Cancelled 7 BUN Cancelled 3 L Creatinine Cancelled 0.66 Est GFR ( Amer) Cancelled > 60 Est GFR (Non-Af Amer) Cancelled > 60 Glucose Cancelled 130 H Calcium Cancelled 7.9 L Phosphorus Magnesium Total Bilirubin AST ALT Alkaline Phosphatase Total Protein Albumin Triglycerides 12/02/16 12/02/16 12/02/16 02:00 02:23 05:25 WBC RBC Hgb Hct MCV MCH MCHC RDW Plt Count Seg Neutrophils % Lymphocytes % Monocytes % Eosinophils % Basophils % Absolute Neutrophils Absolute Lymphocytes Absolute Monocytes Absolute Eosinophils Absolute Basophils Carbonic Acid 0.91 L HCO3/H2CO3 Ratio 24:1 ABG pH 7.49 H ABG pCO2 30.1 L ABG pO2 91.2 ABG HCO3 22.6 ABG O2 Saturation 97.6 ABG Base Excess 0.1 FiO2 25% Sodium Cancelled 142.2 Potassium Cancelled 3.7 Chloride Cancelled 110 H Carbon Dioxide Cancelled 25 Anion Gap Cancelled 7 BUN Cancelled 2 L Creatinine Cancelled 0.67 Est GFR ( Amer) Cancelled > 60 Est GFR (Non-Af Amer) Cancelled > 60 Glucose Cancelled 132 H Calcium Cancelled 7.6 L Phosphorus Magnesium Cancelled 2.4 H Total Bilirubin Cancelled 0.7 AST Cancelled 14 ALT Cancelled 18 Alkaline Phosphatase Cancelled 37 L Total Protein Cancelled 4.6 L Albumin Cancelled 2.6 L Triglycerides Cancelled 73 12/01/16 09:40 Creatine Kinase 56 Impressions: Chest X-Ray 12/01/16 00:00 IMPRESSION: Endotracheal and nasogastric tubes in good positioning. Bandlike atelectasis left lung base. Assessment & Plan - Diagnosis (1) Respiratory failure Qualifiers: Chronicity: acute Respiratory failure complication: hypoxia Qualified Code(s): J96.01 - Acute respiratory failure with hypoxia Is this a current diagnosis for this admission?: YesPlan: Patient appears to have been intubated for decreased level of consciousness and some slight hypoxia. Patient currently doing well from a ventilator standpoint. Appreciate ventilator management by Dr. vinson of pulmonary medicine. (2) Tricyclic overdose Qualifiers: Encounter type: initial encounter Injury intent: intentional self-harm Qualified Code(s): T43.012A - Poisoning by tricyclic antidepressants, intentional self-harm, initial encounter Is this a current diagnosis for this admission?: YesPlan: Patient with first-degree AV block. Most recent EKG reveals a QRS of 98 ms. Begin decreasing sodium bicarbonate by 25% every 4 hours. Continue to monitor. EKGs every 4 hours. BMPs every 4 hours. Continue Versed for sedation and use propofol if needed. Monitor for seizure activity. IVC for patient safety. Plan for inpatient psychiatry. (3) Aspiration pneumonia Qualifiers: Laterality: unspecified laterality Lung location: unspecified part of lung Is this a current diagnosis for this admission?: YesPlan: Suspect early aspiration pneumonitis/possible developing pneumonia. Have sent sputum culture and initiated patient on nebulized treatments and clindamycin. (4) Major depression Qualifiers: Active/Remission status: currently active Major depression episode severity: unspecified Is this a current diagnosis for this admission?: YesPlan: Patient currently under IVC. Patient did intentionally attempt suicide. (5) Obesity (BMI 30.0-34.9) Is this a current diagnosis for this admission?: Yes - Time Critical Time spent with patient: 35 or more minutes Medications reviewed and adjusted accordingly: Yes Anticipated discharge: Other - Inpatient psychiatry
[2016-12-02] MEDS ORDERED: FUROSEMIDE INJ/PF 20 MG/2 ML SDV IV ONE (10:00)
[2016-12-02 10:49] LABS: ARTERIAL BLOOD BASE EXCESS 2.7 mmol/L
[2016-12-02] MEDS ORDERED: DEXAMETHASONE SOD PHOSPHATE INJ 4 MG/1 ML VIAL ONE (10:58)
[2016-12-02] MEDS ORDERED: DEXAMETHASONE SOD PHOS INJ 10 MG/1 ML VIAL IV ONE (11:30)
[2016-12-02 14:55] LABS: ARTERIAL BLOOD BASE EXCESS 0.4 mmol/L; ARTERIAL BLOOD O2 SATURATION 97.7 % (94-98)
--- NOTE | 2016-12-02 17:18 | PSYCHOLOGICAL NOTE ---
Psych Note - Psych Note Psych Note: Patient presented to [facility] ED as a drug overdose. The patient's and picture of the empty pill bottles to her ex-boyfriend. She apparently took the medications about one hour prior to arrival in the ED. The patient was initially moaning but then became unresponsive. She was intubated and is now on a mechanical ventilator. Clinician conducted chart review; patient is intubated at this time and unable to participate in evaluation. Evaluation will occur at a later time.
[2016-12-02] MEDS: NORMAL SALINE 1000 ML 1,000 ML IV PRN (20:21)
--- NOTE | 2016-12-02 20:30 | EKG REPORT ---
SEVERITY:- ABNORMAL ECG - SINUS RHYTHM FIRST DEGREE AV BLOCK ABNORMAL Q SUGGESTS ANTERIOR INFARCT NONSPECIFIC ST-T CHANGES- INFERIOR LEADS : Confirmed by: Stef Issa MD 02-Dec-2016 20:29:26
--- NOTE | 2016-12-02 20:30 | EKG REPORT ---
SEVERITY:- ABNORMAL ECG - SINUS RHYTHM FIRST DEGREE AV BLOCK ABNORMAL Q SUGGESTS ANTERIOR INFARCT : Confirmed by: Stef Issa MD 02-Dec-2016 20:29:37
--- NOTE | 2016-12-02 20:31 | EKG REPORT ---
SEVERITY:- ABNORMAL ECG - SINUS RHYTHM FIRST DEGREE AV BLOCK BORDERLINE T WAVE ABNORMALITIES OLF ANTEROSEPTAL WI. : Confirmed by: Stef Issa MD 02-Dec-2016 20:30:27
[2016-12-03 04:35] LABS: ABSOLUTE LYMPHOCYTES (AUTO) 0.9 10^3/uL (0.5-4.7); ABSOLUTE MONOCYTES (AUTO) 0.4 10^3/uL (0.1-1.4); ABSOLUTE NEUT (AUTO) 8.4 10^3/uL (1.7-8.2); BASOPHILS % (AUTO) 0.1 % (0-2); HEMATOCRIT 35.4 % (36.0-47.0); HEMOGLOBIN 12.2 g/dL (12.0-15.5); HGB HCT DIFFERENCE 1.2; LYMPHOCYTES % (AUTO) 8.9 % (13-45); MEAN CORPUSCULAR HEMOGLOBIN 30.2 pg (27.0-33.4); MEAN CORPUSCULAR HGB CONC 34.4 g/dL (32.0-36.0); MEAN CORPUSCULAR VOLUME 88 fl (80-97); RED BLOOD COUNT 4.04 10^6/uL (3.72-5.28); RED CELL DISTRIBUTION WIDTH 13.1 % (11.5-14.0); WHITE BLOOD COUNT 9.7 10^3/uL (4.0-10.5)
[2016-12-03 05:03] LABS: ALANINE AMINOTRANSFERASE 24 U/L (9-52); ALBUMIN 3.1 g/dL (3.5-5.0); ALKALINE PHOSPHATASE 51 U/L (38-126); ANION GAP 9 (5-19); ASPARTATE AMINO TRANSFERASE 16 U/L (14-36); BILIRUBIN,TOTAL 0.6 mg/dL (0.2-1.3); BLOOD UREA NITROGEN 8 mg/dL (7-20); CALCIUM 8.7 mg/dL (8.4-10.2); CARBON DIOXIDE 20 mmol/L (22-30); CHLORIDE 112 mmol/L (98-107); CREATININE RESULT 0.66 mg/dL (0.52-1.25); GLUCOSE 103 mg/dL (75-110); MAGNESIUM 2.2 mg/dL (1.6-2.3); PHOSPHORUS 3.6 mg/dL (2.5-4.5); POTASSIUM 4.1 mmol/L (3.6-5.0); SODIUM 141.1 mmol/L (137-145); TOTAL PROTEIN 5.5 g/dL (6.3-8.2)
[2016-12-03] MEDS: CLINDAMYCIN 600 MG/D5W RTU 50 ML IV SCH ×3 (06:10→21:08)
[2016-12-03] MEDS: FAMOTIDINE INJ/PF 20 MG/2 ML SDV IV SCH (06:11)
[2016-12-03] MEDS: NORMAL SALINE 1000 ML 1,000 ML IV PRN ×2 (06:11→14:08)
--- NOTE | 2016-12-03 08:29 | EKG REPORT ---
SEVERITY:- ABNORMAL ECG - SINUS RHYTHM FIRST DEGREE AV BLOCK ABNORMAL Q SUGGESTS ANTERIOR INFARCT BORDERLINE T ABNORMALITIES, ANTERIOR LEADS : Confirmed by: Stef Issa MD 03-Dec-2016 08:29:04
[2016-12-03] MEDS ORDERED: MORPHINE SULFATE 10 MG/ML INJ IV PRN (09:05)
[2016-12-03] MEDS: ENOXAPARIN SODIUM INJ 40 MG/0.4 ML DISP.SYRIN SUBCUT SCH (10:51)
--- NOTE | 2016-12-03 16:13 | PDOC PROGRESS REPORT ---
Subjective Progress Note for:: 12/03/16 Subjective:: 24 hours status post extubation complains of mild cough Physical Exam Vital Signs: Temp Pulse Resp BP Pulse Ox 98.4 F 75 25 H 111/69 93 12/03/16 00:00 12/03/16 08:00 12/03/16 06:00 12/03/16 05:42 12/03/16 00:00 Intake & Output 12/02/16 12/03/16 12/04/16 06:59 06:59 06:59 Intake Total 8618 7102 Output Total 7060 6385 Balance 1604 -3507 Weight 87.5 kg 83.3 kg General appearance: PRESENT: cooperative, well-developed, well-nourished Head exam: PRESENT: atraumatic, normocephalic Eye exam: PRESENT: conjunctiva pale, EOMI Mouth exam: PRESENT: neck supple, tongue midline Neck exam: PRESENT: carotid bruit Respiratory exam: PRESENT: clear to auscultation gaudencio, symmetrical, unlabored Cardiovascular exam: PRESENT: RRR, +S1, +S2 Pulses: PRESENT: normal radial pulses GI/Abdominal exam: PRESENT: normal bowel sounds, soft. ABSENT: distended, guarding, mass, organolmegaly, rebound, tenderness Rectal exam: PRESENT: deferred Gentrourinary exam: PRESENT: indwelling catheter Musculoskeletal exam: PRESENT: normal inspection Neurological exam: PRESENT: alert, awake Psychiatric exam: PRESENT: normal mood Skin exam: PRESENT: dry, intact, warm Results Laboratory Results: 12/03/16 04:12 12/03/16 04:12 12/02/16 12/02/16 12/03/16 10:19 14:24 04:12 WBC 9.7 RBC 4.04 Hgb 12.2 Hct 35.4 L MCV 88 MCH 30.2 MCHC 34.4 RDW 13.1 Plt Count 153 Seg Neutrophils % 87.0 H Lymphocytes % 8.9 L Monocytes % 4.0 Eosinophils % 0.0 Basophils % 0.1 Absolute Neutrophils 8.4 H Absolute Lymphocytes 0.9 Absolute Monocytes 0.4 Absolute Eosinophils 0.0 Absolute Basophils 0.0 Carbonic Acid 1.08 1.02 L HCO3/H2CO3 Ratio 24:1 23:1 ABG pH 7.48 H 7.46 H ABG pCO2 35.9 33.8 L ABG pO2 84.5 95.0 ABG HCO3 26.0 23.7 ABG O2 Saturation 97.0 97.7 ABG Base Excess 2.7 0.4 FiO2 25% 2 L Sodium Potassium Chloride Carbon Dioxide Anion Gap BUN Creatinine Est GFR ( Amer) Est GFR (Non-Af Amer) Glucose Calcium Phosphorus Magnesium Total Bilirubin AST ALT Alkaline Phosphatase Total Protein Albumin 12/03/16 04:12 WBC RBC Hgb Hct MCV MCH MCHC RDW Plt Count Seg Neutrophils % Lymphocytes % Monocytes % Eosinophils % Basophils % Absolute Neutrophils Absolute Lymphocytes Absolute Monocytes Absolute Eosinophils Absolute Basophils Carbonic Acid HCO3/H2CO3 Ratio ABG pH ABG pCO2 ABG pO2 ABG HCO3 ABG O2 Saturation ABG Base Excess FiO2 Sodium 141.1 Potassium 4.1 Chloride 112 H Carbon Dioxide 20 L Anion Gap 9 BUN 8 Creatinine 0.66 Est GFR ( Amer) > 60 Est GFR (Non-Af Amer) > 60 Glucose 103 Calcium 8.7 Phosphorus 3.6 Magnesium 2.2 Total Bilirubin 0.6 AST 16 ALT 24 Alkaline Phosphatase 51 Total Protein 5.5 L Albumin 3.1 L 12/01/16 09:40 Creatine Kinase 56 Impressions: Chest X-Ray 12/02/16 07:41 IMPRESSION: 1. The nasogastric tube appears to have some pole back from the previous study with the tip now at the GE junction. The endotracheal tube is unchanged position. 2. Persistent atelectasis in the left lung base. Otherwise no significant change. SUPPORT DEVICE(S) IN EXPECTED LOCATIONS. Assessment & Plan - Diagnosis (1) Major depression Qualifiers: Active/Remission status: currently active Major depression episode severity: unspecified Is this a current diagnosis for this admission?: YesPlan: As per psychiatry (2) Respiratory failure Qualifiers: Chronicity: acute Respiratory failure complication: hypoxia Qualified Code(s): J96.01 - Acute respiratory failure with hypoxia Is this a current diagnosis for this admission?: YesPlan: 24 hours status post extubation doing well (3) Tricyclic overdose Qualifiers: Encounter type: initial encounter Injury intent: intentional self-harm Qualified Code(s): T43.012A - Poisoning by tricyclic antidepressants, intentional self-harm, initial encounter Is this a current diagnosis for this admission?: YesPlan: No EKG abnormalities noted awake and alert - Time Critical Time spent with patient: 25-34 minutes - 30 minutes
--- NOTE | 2016-12-03 16:16 | PDOC PROGRESS REPORT ---
Subjective Progress Note for:: 12/02/16 Subjective:: Intubated lethargic responding to commands Physical Exam Vital Signs: Temp Pulse Resp BP Pulse Ox 98.8 F 77 15 106/63 100 12/01/16 18:00 12/01/16 20:27 12/02/16 07:00 12/02/16 06:41 12/02/16 08:00 Intake & Output 12/01/16 12/02/16 12/03/16 06:59 06:59 06:59 Intake Total 8664 Output Total 7060 Balance 1604 Weight 87.5 kg General appearance: PRESENT: cooperative, disheveled, well-developed, well- nourished Head exam: PRESENT: atraumatic, normocephalic Eye exam: PRESENT: conjunctiva pale, EOMI Mouth exam: PRESENT: neck supple, other - ET tube in place Neck exam: ABSENT: carotid bruit, JVD, lymphadenopathy, thyromegaly Respiratory exam: PRESENT: clear to auscultation gaudencio, rhonchi, unlabored Cardiovascular exam: PRESENT: RRR, +S1, +S2 Pulses: PRESENT: normal radial pulses GI/Abdominal exam: PRESENT: normal bowel sounds, soft. ABSENT: distended, guarding, mass, organolmegaly, rebound, tenderness Rectal exam: PRESENT: deferred Gentrourinary exam: PRESENT: indwelling catheter Musculoskeletal exam: PRESENT: normal inspection Neurological exam: PRESENT: awake Skin exam: PRESENT: dry, intact, warm Results Laboratory Results: 12/02/16 02:00 12/02/16 02:23 12/01/16 12/01/16 12/01/16 09:20 09:40 09:40 WBC 9.2 D RBC 4.04 Hgb 12.1 Hct 36.0 MCV 89 MCH 30.0 MCHC 33.7 RDW 13.4 Plt Count 154 Seg Neutrophils % 86.2 H Lymphocytes % 8.6 L Monocytes % 4.3 Eosinophils % 0.7 Basophils % 0.2 Absolute Neutrophils 7.9 Absolute Lymphocytes 0.8 Absolute Monocytes 0.4 Absolute Eosinophils 0.1 Absolute Basophils 0.0 Carbonic Acid 1.06 HCO3/H2CO3 Ratio 19:1 ABG pH 7.39 ABG pCO2 35.2 ABG pO2 147.7 H ABG HCO3 21.0 ABG O2 Saturation 98.9 H ABG Base Excess -3.3 FiO2 35% Sodium 140.2 Potassium 3.5 L Chloride 112 H Carbon Dioxide 19 L Anion Gap 9 BUN 5 L Creatinine 0.68 Est GFR ( Amer) > 60 Est GFR (Non-Af Amer) > 60 Glucose 122 H Calcium 8.3 L Phosphorus 2.6 Magnesium 1.9 Total Bilirubin 1.0 AST 15 ALT 21 Alkaline Phosphatase 47 Total Protein 5.4 L Albumin 3.2 L Triglycerides 12/01/16 12/01/16 12/01/16 12:25 15:10 15:50 WBC RBC Hgb Hct MCV MCH MCHC RDW Plt Count Seg Neutrophils % Lymphocytes % Monocytes % Eosinophils % Basophils % Absolute Neutrophils Absolute Lymphocytes Absolute Monocytes Absolute Eosinophils Absolute Basophils Carbonic Acid 1.01 L HCO3/H2CO3 Ratio 22:1 ABG pH 7.46 H ABG pCO2 33.4 L ABG pO2 141.5 H ABG HCO3 23.1 ABG O2 Saturation 98.9 H ABG Base Excess -0.3 FiO2 35% Sodium 145.0 141.7 Potassium 3.1 L 3.5 L Chloride 112 H 110 H Carbon Dioxide 25 25 Anion Gap 8 7 BUN 5 L 4 L Creatinine 0.65 0.61 Est GFR ( Amer) > 60 > 60 Est GFR (Non-Af Amer) > 60 > 60 Glucose 129 H 151 H Calcium 7.8 L 7.8 L Phosphorus Magnesium Total Bilirubin AST ALT Alkaline Phosphatase Total Protein Albumin Triglycerides 12/01/16 12/01/16 12/01/16 16:28 18:05 19:35 WBC RBC Hgb Hct MCV MCH MCHC RDW Plt Count Seg Neutrophils % Lymphocytes % Monocytes % Eosinophils % Basophils % Absolute Neutrophils Absolute Lymphocytes Absolute Monocytes Absolute Eosinophils Absolute Basophils Carbonic Acid 1.05 0.94 L 0.97 L HCO3/H2CO3 Ratio 22:1 22:1 23:1 ABG pH 7.45 7.46 H 7.47 H ABG pCO2 35.0 31.1 L 32.1 L ABG pO2 138.0 H 139.7 H 124.0 H ABG HCO3 23.8 21.5 22.7 ABG O2 Saturation 98.9 H 98.9 H 98.7 H ABG Base Excess 0.2 -1.5 -0.4 FiO2 35% 35% 30% Sodium Potassium Chloride Carbon Dioxide Anion Gap BUN Creatinine Est GFR ( Amer) Est GFR (Non-Af Amer) Glucose Calcium Phosphorus Magnesium Total Bilirubin AST ALT Alkaline Phosphatase Total Protein Albumin Triglycerides 12/01/16 12/01/16 12/01/16 19:50 20:45 21:45 WBC RBC Hgb Hct MCV MCH MCHC RDW Plt Count Seg Neutrophils % Lymphocytes % Monocytes % Eosinophils % Basophils % Absolute Neutrophils Absolute Lymphocytes Absolute Monocytes Absolute Eosinophils Absolute Basophils Carbonic Acid 1.19 0.99 L HCO3/H2CO3 Ratio 21:1 22:1 ABG pH 7.43 7.45 ABG pCO2 39.4 32.8 L ABG pO2 66.9 L 75.8 L ABG HCO3 25.4 22.4 ABG O2 Saturation 93.8 L 95.9 ABG Base Excess 1.0 -0.9 FiO2 30% 30% Sodium 142.4 Potassium 4.0 Chloride 112 H Carbon Dioxide 24 Anion Gap 6 BUN 3 L Creatinine 0.61 Est GFR ( Amer) > 60 Est GFR (Non-Af Amer) > 60 Glucose 132 H Calcium 7.9 L Phosphorus Magnesium Total Bilirubin AST ALT Alkaline Phosphatase Total Protein Albumin Triglycerides 12/01/16 12/01/16 12/02/16 22:49 23:39 02:00 WBC 6.5 RBC 3.67 L Hgb 11.3 L Hct 32.6 L MCV 89 MCH 30.7 MCHC 34.6 RDW 13.3 Plt Count 128 L Seg Neutrophils % 78.7 H Lymphocytes % 14.3 Monocytes % 5.0 Eosinophils % 1.6 Basophils % 0.4 Absolute Neutrophils 5.1 Absolute Lymphocytes 0.9 Absolute Monocytes 0.3 Absolute Eosinophils 0.1 Absolute Basophils 0.0 Carbonic Acid HCO3/H2CO3 Ratio ABG pH ABG pCO2 ABG pO2 ABG HCO3 ABG O2 Saturation ABG Base Excess FiO2 Sodium Cancelled 141.5 Potassium Cancelled 3.9 Chloride Cancelled 110 H Carbon Dioxide Cancelled 25 Anion Gap Cancelled 7 BUN Cancelled 3 L Creatinine Cancelled 0.66 Est GFR ( Amer) Cancelled > 60 Est GFR (Non-Af Amer) Cancelled > 60 Glucose Cancelled 130 H Calcium Cancelled 7.9 L Phosphorus Magnesium Total Bilirubin AST ALT Alkaline Phosphatase Total Protein Albumin Triglycerides 12/02/16 12/02/16 12/02/16 02:00 02:23 05:25 WBC RBC Hgb Hct MCV MCH MCHC RDW Plt Count Seg Neutrophils % Lymphocytes % Monocytes % Eosinophils % Basophils % Absolute Neutrophils Absolute Lymphocytes Absolute Monocytes Absolute Eosinophils Absolute Basophils Carbonic Acid 0.91 L HCO3/H2CO3 Ratio 24:1 ABG pH 7.49 H ABG pCO2 30.1 L ABG pO2 91.2 ABG HCO3 22.6 ABG O2 Saturation 97.6 ABG Base Excess 0.1 FiO2 25% Sodium Cancelled 142.2 Potassium Cancelled 3.7 Chloride Cancelled 110 H Carbon Dioxide Cancelled 25 Anion Gap Cancelled 7 BUN Cancelled 2 L Creatinine Cancelled 0.67 Est GFR ( Amer) Cancelled > 60 Est GFR (Non-Af Amer) Cancelled > 60 Glucose Cancelled 132 H Calcium Cancelled 7.6 L Phosphorus Magnesium Cancelled 2.4 H Total Bilirubin Cancelled 0.7 AST Cancelled 14 ALT Cancelled 18 Alkaline Phosphatase Cancelled 37 L Total Protein Cancelled 4.6 L Albumin Cancelled 2.6 L Triglycerides Cancelled 73 12/01/16 09:40 Creatine Kinase 56 Impressions: Chest X-Ray 12/01/16 00:00 IMPRESSION: Endotracheal and nasogastric tubes in good positioning. Bandlike atelectasis left lung base. Assessment & Plan - Diagnosis (1) Major depression Qualifiers: Active/Remission status: currently active Major depression episode severity: unspecified Is this a current diagnosis for this admission?: YesPlan: As per psychiatry (2) Respiratory failure Qualifiers: Chronicity: acute Respiratory failure complication: hypoxia Qualified Code(s): J96.01 - Acute respiratory failure with hypoxia Is this a current diagnosis for this admission?: YesPlan: Minute volume, respiratory rate, FiO2, airway pressures, mental status all suggest successful extubation will proceed with extubation (3) Tricyclic overdose Qualifiers: Encounter type: initial encounter Injury intent: intentional self-harm Qualified Code(s): T43.012A - Poisoning by tricyclic antidepressants, intentional self-harm, initial encounter Is this a current diagnosis for this admission?: YesPlan: No EKG abnormalities noted awake - Time Critical Time spent with patient: 35 or more minutes - 55 minutes extubation
[2016-12-03] MEDS: BENZOCAINE/MENTHOL SORE THROAT LOZENGE BUCCAL PRN ×2 (18:23→21:09)
--- NOTE | 2016-12-03 19:37 | PDOC PROGRESS REPORT ---
Subjective Progress Note for:: 12/03/16 Subjective:: Patient reports she feels like she is "being treated like an animal". She reports that she only wants to speak with her own psychiatrist.Patient denies chest pain, shortness of breath, abdominal pain, nausea, vomiting, fevers, chills, diarrhea, constipation, headache, new onset weakness. Physical Exam Vital Signs: Temp Pulse Resp BP Pulse Ox 98.4 F 78 25 H 111/69 93 12/03/16 00:00 12/03/16 00:00 12/03/16 06:00 12/03/16 05:42 12/03/16 00:00 Intake & Output 12/02/16 12/03/16 12/04/16 06:59 06:59 06:59 Intake Total 8623 3508 Output Total 7000 6318 Balance 1604 -3507 Weight 87.5 kg 83.3 kg Exam: General: Awake alert and oriented x3, no acute respiratory distress HEENT: AT/NC, PERRL, EOMI, oropharynx is moist, pink, no scleral icterus, no conjunctival injection Neck: No JVD, trachea midline Chest: Clear to auscultation bilaterally, no wheezes rhonchi or rales CV: Regular rate and rhythm, normal S1 and S2, no murmur, rub, or gallop Abdomen: Soft, nontender to palpation, nondistended, active bowel sounds; no rebound, rigidity, or guarding Extremities: No cyanosis, clubbing or edema Neuro: Cranial nerves II through XII are grossly intact without focal deficits; awake alert and oriented x3 Psych: Hostile Results Laboratory Results: 12/03/16 04:12 12/03/16 04:12 12/02/16 12/02/16 12/03/16 10:19 14:24 04:12 WBC 9.7 RBC 4.04 Hgb 12.2 Hct 35.4 L MCV 88 MCH 30.2 MCHC 34.4 RDW 13.1 Plt Count 153 Seg Neutrophils % 87.0 H Lymphocytes % 8.9 L Monocytes % 4.0 Eosinophils % 0.0 Basophils % 0.1 Absolute Neutrophils 8.4 H Absolute Lymphocytes 0.9 Absolute Monocytes 0.4 Absolute Eosinophils 0.0 Absolute Basophils 0.0 Carbonic Acid 1.08 1.02 L HCO3/H2CO3 Ratio 24:1 23:1 ABG pH 7.48 H 7.46 H ABG pCO2 35.9 33.8 L ABG pO2 84.5 95.0 ABG HCO3 26.0 23.7 ABG O2 Saturation 97.0 97.7 ABG Base Excess 2.7 0.4 FiO2 25% 2 L Sodium Potassium Chloride Carbon Dioxide Anion Gap BUN Creatinine Est GFR ( Amer) Est GFR (Non-Af Amer) Glucose Calcium Phosphorus Magnesium Total Bilirubin AST ALT Alkaline Phosphatase Total Protein Albumin 12/03/16 04:12 WBC RBC Hgb Hct MCV MCH MCHC RDW Plt Count Seg Neutrophils % Lymphocytes % Monocytes % Eosinophils % Basophils % Absolute Neutrophils Absolute Lymphocytes Absolute Monocytes Absolute Eosinophils Absolute Basophils Carbonic Acid HCO3/H2CO3 Ratio ABG pH ABG pCO2 ABG pO2 ABG HCO3 ABG O2 Saturation ABG Base Excess FiO2 Sodium 141.1 Potassium 4.1 Chloride 112 H Carbon Dioxide 20 L Anion Gap 9 BUN 8 Creatinine 0.66 Est GFR ( Amer) > 60 Est GFR (Non-Af Amer) > 60 Glucose 103 Calcium 8.7 Phosphorus 3.6 Magnesium 2.2 Total Bilirubin 0.6 AST 16 ALT 24 Alkaline Phosphatase 51 Total Protein 5.5 L Albumin 3.1 L 12/01/16 09:40 Creatine Kinase 56 Impressions: Chest X-Ray 12/02/16 07:41 IMPRESSION: 1. The nasogastric tube appears to have some pole back from the previous study with the tip now at the GE junction. The endotracheal tube is unchanged position. 2. Persistent atelectasis in the left lung base. Otherwise no significant change. SUPPORT DEVICE(S) IN EXPECTED LOCATIONS. Assessment & Plan - Diagnosis (1) Respiratory failure Qualifiers: Chronicity: acute Respiratory failure complication: hypoxia Qualified Code(s): J96.01 - Acute respiratory failure with hypoxia Is this a current diagnosis for this admission?: YesPlan: Resolved. Patient remains extubated and doing well (2) Tricyclic overdose Qualifiers: Encounter type: initial encounter Injury intent: intentional self-harm Qualified Code(s): T43.012A - Poisoning by tricyclic antidepressants, intentional self-harm, initial encounter Is this a current diagnosis for this admission?: YesPlan: Current EKG reveals a QRS of 89 ms. patient off bicarbonate therapy. IVC for patient safety. Plan for inpatient psychiatry. Patient exhibits very little insight into her current condition and the circumstances leading up to it. Patient reports to me that she attempted to commit suicide because she proposed to her significant other and he declined and subsequently begin using dating sites. Currently medically stable for transfer to inpatient facility for ongoing therapy. (3) Aspiration pneumonia Qualifiers: Laterality: unspecified laterality Lung location: unspecified part of lung Is this a current diagnosis for this admission?: YesPlan: Suspect early aspiration pneumonitis/possible developing pneumonia. Have sent sputum culture and patient on nebulized treatments and clindamycin. (4) Major depression Qualifiers: Active/Remission status: currently active Major depression episode severity: unspecified Is this a current diagnosis for this admission?: Yes (5) Obesity (BMI 30.0-34.9) Is this a current diagnosis for this admission?: Yes - Time Time Spent with patient: 25-34 minutes Medications reviewed and adjusted accordingly: Yes Anticipated discharge: Other Within: when bed available
[2016-12-04 04:55] LABS: ABSOLUTE BASOPHILS # (AUTO) 0.1 10^3/uL (0.0-0.2); ABSOLUTE EOSINOPHILS # (AUTO) 0.2 10^3/uL (0.0-0.6); ABSOLUTE MONOCYTES (AUTO) 0.5 10^3/uL (0.1-1.4); ABSOLUTE NEUT (AUTO) 5.7 10^3/uL (1.7-8.2); EOSINOPHILS % (AUTO) 2.1 % (0-6); HEMATOCRIT 33.8 % (36.0-47.0); HEMOGLOBIN 11.4 g/dL (12.0-15.5); HGB HCT DIFFERENCE 0.4; LYMPHOCYTES % (AUTO) 23.6 % (13-45); MEAN CORPUSCULAR HEMOGLOBIN 30.1 pg (27.0-33.4); MEAN CORPUSCULAR HGB CONC 33.7 g/dL (32.0-36.0); MEAN CORPUSCULAR VOLUME 89 fl (80-97); MONOCYTES % (AUTO) 6.4 % (3-13); RED BLOOD COUNT 3.79 10^6/uL (3.72-5.28); RED CELL DISTRIBUTION WIDTH 13.4 % (11.5-14.0); SEGMENTED NEUTROPHILS % (AUTO) 66.9 % (42-78); WHITE BLOOD COUNT 8.6 10^3/uL (4.0-10.5)
[2016-12-04 05:03] LABS: ALANINE AMINOTRANSFERASE 22 U/L (9-52); ALBUMIN 2.8 g/dL (3.5-5.0); ALKALINE PHOSPHATASE 47 U/L (38-126); ANION GAP 8 (5-19); ASPARTATE AMINO TRANSFERASE 15 U/L (14-36); BILIRUBIN,TOTAL 0.3 mg/dL (0.2-1.3); BLOOD UREA NITROGEN 11 mg/dL (7-20); CALCIUM 8.3 mg/dL (8.4-10.2); CARBON DIOXIDE 22 mmol/L (22-30); CHLORIDE 111 mmol/L (98-107); CREATININE RESULT 0.83 mg/dL (0.52-1.25); GLUCOSE 82 mg/dL (75-110); MAGNESIUM 1.9 mg/dL (1.6-2.3); POTASSIUM 3.9 mmol/L (3.6-5.0)
[2016-12-04] MEDS: NORMAL SALINE 1000 ML 1,000 ML IV PRN (06:05)
[2016-12-04] MEDS: CLINDAMYCIN 600 MG/D5W RTU 50 ML IV SCH (06:05)
[2016-12-04] MEDS: ENOXAPARIN SODIUM INJ 40 MG/0.4 ML DISP.SYRIN SUBCUT SCH (10:34)
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
[2016-12-04] MEDS ORDERED: CLONAZEPAM 1 MG TABLET PO PRN (12:56)
[2016-12-04] MEDS ORDERED: CLINDAMYCIN HCL 150 MG CAPSULE PO SCH (14:00)
[2016-12-04] MEDS ORDERED: BUPROPION HCL 100 MG TABLET PO SCH (14:00)
[2016-12-04 16:24] VITALS: BP 116/70
--- NOTE | 2016-12-04 21:38 | PDOC DISCHARGE SUMMARY ---
General - Admit/Disc Date/PCP Admission Date/Primary Care Provider: 11/30/16 15:38 Discharge Date: 12/04/16 - Discharge Diagnosis (1) Respiratory failure Is this a current diagnosis for this admission?: Yes (2) Tricyclic overdose Is this a current diagnosis for this admission?: Yes (3) Aspiration pneumonia Is this a current diagnosis for this admission?: Yes (4) Major depression Is this a current diagnosis for this admission?: Yes (5) Obesity (BMI 30.0-34.9) Is this a current diagnosis for this admission?: Yes (6) Metabolic acidosis due to ingestion of drugs or chemicals Is this a current diagnosis for this admission?: Yes (7) Hypoalbuminemia due to protein-calorie malnutrition Is this a current diagnosis for this admission?: Yes - Additional Information Resuscitation Status: Full Code Discharge Diet: Regular Discharge Activity: Activity As Tolerated Home Medications: Bupropion HCl [Wellbutrin Xl 300mg 24hr Tablet] 300 mg PO QAM 12/03/16 Clonazepam [Klonopin] 0.25 mg PO DAILYP PRN 12/03/16 Clonazepam [Klonopin] 0.5 mg PO HSP PRN 12/03/16 Doxepin HCl [Sinequan 10 mg Capsule] 10 mg PO HSP PRN 12/03/16 Ergocalciferol (Vitamin D2) [Vitamin D2] 50,000 unit PO GILLESPIE@1000 12/03/16 Topiramate [Topamax] 100 mg PO QHS 12/03/16 History of Present Illness History of Present Illness: JANAE DUBOIS is a 36 year old female with a history of PTSD, depression who presented to the emergency department after ingesting approximately 60 tablets of doxepin and possible unknown quantity of Klonopin. Patient was intubated for airway protection. She was placed in the ICU on supportive measures. Hospital Course Hospital Course: I initiated care of this patient on day #2 of her hospital stay. Patient had a widening of her QRS passed 100 ms and was initiated on bolus and continuous bicarbonate therapy. Serial ABGs and BMPs were performed and electrolytes were corrected continuously. Patient was found to have a mild aspiration pneumonia and initiated on clindamycin with improvement. Patient became acutely volume overloaded due to bicarbonate and IV fluid therapy. She was diuresed successfully. Patient was extubated without incident. The remainder of her hospital stay was unremarkable. Prior to discharge I did discuss her case with her psychiatrist Dr. Valero, who recommended placing patient on Wellbutrin 300 mg by mouth daily, Topamax 50 mg by mouth twice a day and Klonopin. She and I both discussed and agreed that patient should go to inpatient therapy. Upon discussion with patient and her family, it was revealed that patient overdosed in the presence of her 3 going on [id number] child. Patient was placed in inpatient psychiatry and was remanded to the custody of law enforcement for transport. Physical Exam Vital Signs: Temp Pulse Resp BP Pulse Ox 98.5 F 76 14 116/70 99 12/04/16 16:20 12/04/16 16:20 12/04/16 16:20 12/04/16 16:20 12/04/16 16:20 Intake & Output 12/03/16 12/04/16 12/05/16 06:59 06:59 06:59 Intake Total 2878 4186 890 Output Total 6385 1725 Balance -3507 2461 890 Weight 83.3 kg 85.1 kg Exam: General: Awake alert and oriented x3, no acute respiratory distress HEENT: AT/NC, PERRL, EOMI, oropharynx is moist, pink, no scleral icterus, no conjunctival injection Neck: No JVD, trachea midline Chest: Clear to auscultation bilaterally, no wheezes rhonchi or rales CV: Regular rate and rhythm, normal S1 and S2, no murmur, rub, or gallop Abdomen: Soft, nontender to palpation, nondistended, active bowel sounds; no rebound, rigidity, or guarding Extremities: No cyanosis, clubbing or edema Neuro: Cranial nerves II through XII are grossly intact without focal deficits; awake alert and oriented x3 Psych: Normal mood and affect Results Laboratory Results: 12/04/16 03:57 12/04/16 03:57 12/04/16 12/04/16 03:57 03:57 WBC 8.6 RBC 3.79 Hgb 11.4 L Hct 33.8 L MCV 89 MCH 30.1 MCHC 33.7 RDW 13.4 Plt Count 146 L Seg Neutrophils % 66.9 Lymphocytes % 23.6 Monocytes % 6.4 Eosinophils % 2.1 Basophils % 1.0 Absolute Neutrophils 5.7 Absolute Lymphocytes 2.0 Absolute Monocytes 0.5 Absolute Eosinophils 0.2 Absolute Basophils 0.1 Sodium 141.0 Potassium 3.9 Chloride 111 H Carbon Dioxide 22 Anion Gap 8 BUN 11 Creatinine 0.83 Est GFR ( Amer) > 60 Est GFR (Non-Af Amer) > 60 Glucose 82 Calcium 8.3 L Magnesium 1.9 Total Bilirubin 0.3 AST 15 ALT 22 Alkaline Phosphatase 47 Total Protein 5.0 L Albumin 2.8 L 12/01/16 13:15 Tracheal Aspirate Gram Stain - Final 12/01/16 13:15 Tracheal Aspirate Sputum Culture - Final Staphylococcus Aureus Normal Bri Absent 12/01/16 09:40 Creatine Kinase 56 Impressions: Chest X-Ray 12/04/16 06:00 IMPRESSION: Minimal residual left basilar atelectasis. Overall findings are improved. Qualifiers PATEINT BEING DISCHARGED WITH ANY OF THE FOLLOWING DIAGNOSIS?: No Plan Time Spent: Greater than 30 Minutes
[2016-12-04] MEDS ORDERED: TOPIRAMATE 25 MG TABLET PO SCH (22:00)
== END 2016-12-04 17:10 | DRG 917 ==
LOC: ER 13:39 → EH 14:56 → UNDOADMIN 14:56 → EH 15:38 → ICU 12-01 07:39 → 5 12-03 13:47
PROVIDERS: ADMIT Internal Medicine; ATTEND Internal Medicine
PROC: 0BH17EZ Insertion of Endotracheal Airway into Trachea, Via Natural or Artificial Opening (ICD-10-PCS; principal; 2016-11-30)
PROC: 5A1945Z Respiratory Ventilation, 24-96 Consecutive Hours (ICD-10-PCS; 2016-11-30)
DX: T43.012A Poisoning by tricyclic antidepressants, intentional self-harm, initial encounter (principal); J96.01 Acute respiratory failure with hypoxia; J69.0 Pneumonitis due to inhalation of food and vomit; E87.2 Acidosis; E46 Unspecified protein-calorie malnutrition; E88.09 Other disorders of plasma-protein metabolism, not elsewhere classified; F32.9 Major depressive disorder, single episode, unspecified; E66.9 Obesity, unspecified; Y92.009 Unspecified place in unspecified non-institutional (private) residence as the place of occurrence of the external cause; Z68.32 Body mass index [BMI] 32.0-32.9, adult
CPT/HCPCS: 36415; 36600; 51702; 71010; 80048; 80053; 80178; 80307; 81001; 81025; 82550; 82803; 82962; 83735; 84100; 84478; 85025; 87070; 87077; 87186; 87205; 93005; 93010; 94002; 94003; 94799; 96360; 99291; J0330; J1100; J1650; J1940; J2250; J2270; J2704; J3475; J3480; J3490; J7030; J7060; S0028